=== PATIENT | female | born 1960 | race Caucasian/White ===

== ENCOUNTER 2024-03-23 12:36 | Emergency (ER) | payer MEDICARE, MEDICAID ==
[2024-03-23] VITALS (8 sets, daily range): BP systolic 122–134; BP diastolic 61–83
[~2024-03-23] VITALS: Ht 167.6 cm; Wt 75.0 kg
[~2024-03-23 12:36] MED LIST: ANAPROX275 MG OR; NO HOME MEDS; TORADOL OR; VICODIN ES1 TAB OR
[2024-03-23] MEDS ORDERED: ZYRTEC10 MG PO ×2 (14:56→15:44)
[2024-03-23] MEDS ORDERED: ZPAK PO ×2 (14:56→15:44)
[2024-03-23] MEDS ORDERED: EQ MUCUS ER600 MG PO ×2 (14:56→15:44)
== END 2024-03-23 15:18 | disposition home or self-care (01) ==
LOC: ED 12:36
DX: J40 Bronchitis, not specified as acute or chronic (principal); F17.200 Nicotine dependence, unspecified, uncomplicated; Z20.822 Contact with and (suspected) exposure to COVID-19